=== PATIENT | female | born 2005 | race Two or more races ===

== ENCOUNTER 2025-07-27 21:05 | Emergency (ER) | payer OTHER, SELFPAY ==
[2025-07-27 21:07] VITALS: BMI 25.8
--- NOTE | 2025-07-27 22:40 | PD.EDWOUND ---
ED Wound/Laceration-RME/HPI General Chief Complaint: Wound/Laceration Stated Complaint: LAC TO L FOREARM Time Seen by Provider: 07/27/25 22:25 Arrival date/time: 07/27/25 21:05 RME / HPI RME / HPI narrative: 20-year-old female patient came in for evaluation regarding left forearm laceration. Incident happened few minutes prior to ER visit while working in [employer] accidentally cut her forearm with a juke box mechanic resulting into a 2 cm gaping laceration with minimal bleeding. Denies any other injury. Tetanus vaccination is up-to-date. Related Data Allergies Allergy/AdvReac Type Severity Reaction Status Date / Time No Known Allergies Allergy Verified 07/27/25 21:09 Review of Systems Review of Systems Narrative Review of Systems: Review of system reviewed and within normal limits except mentioned in HPI ED Exam Narrative Physical exam: VITAL SIGNS: Reviewed. GENERAL APPEARANCE: Alert and interactive, follows commands, no acute distress, HEAD AND FACE: Non-traumatic. ENT: PERRL, pink conjunctivitis, eyelid no trauma, Mucous membrane moist. NECK: Supple, nontender, no nuchal rigidity. RECTAL: Deferred. GENITAL: Deferred. NEUROLOGICAL: Gross motor function intact sensory function intact, Appropriate for age. MUSCULOSKELETAL: low back nontender, full range of motion. EXTREMITIES: Nontender, full range of motion. SKIN: Color pink, dry, no rash, +2 cm gaping laceration left forearm volar aspect with minimal bleeding full range of motion of the wrist and fingers,, no abrasions, no contusions. LYMPHATICS: Deferred. Course Quality Measures none Vital Signs Vital signs: Vital Signs Temperature 98.2 F 07/27/25 22:50 Pulse Rate 78 07/27/25 22:50 Respiratory Rate 16 07/27/25 22:50 Blood Pressure 134/87 H 07/27/25 22:50 Pulse Oximetry (%) 100 07/27/25 22:50 Oxygen Delivery Method Room Air 07/27/25 22:50 PROCEDURES: Laceration Laceration 1: Site: upper extremity Side (If applicable): left Size (cm): 2 Description: linear Depth: simple, single layer Local Anesthetic: lidocaine 1% Amount of anesthesia used (mL): 2 Pre-repair: wound explored and irrigated extensively Skin layer closed with: nylon Suture size (cm): 5-0 Number of sutures: 5 Technique: simple, interrupted Wound / Laceration MDM Narrative MDM Narrative:: 20-year-old female patient came in for evaluation regarding left forearm laceration. Incident happened few minutes prior to ER visit while working in [employer] accidentally cut her forearm with a juke box mechanic resulting into a 2 cm gaping laceration with minimal bleeding. Denies any other injury. Tetanus vaccination is up-to-date. Suturing was done by me see procedure note. Tetanus vaccination is up-to-date. Patient tolerated the procedure well Stable for discharge home Patient data External records reviewed:: None Clinical information provided by:: patient Social determinants that could affect healthcare access:: none Patient has the following chronic illnesses:: None How is presenting disease/condition affected by chronic disease/condition?: exacerbated by Evaluation data The following diagnostics were reviewed and interpreted by me:: other (specify) Lab and/or radiology exams considered but not ordered:: None Interpretation Summary: None Medications / Prescriptions Medications or Prescriptions considered but not ordered:: None Medication administrations:: Motrin Consultations Consultation(s) initiated? (list below): No Diagnosis Wound Differential Diagnosis: laceration, abrasion and avulsion of skin Most likely diagnosis given after review of the tests above:: Left forearm laceration Admission Indicated Admission indicated?: not indicated Admission Request Was there a request for admission?: No Disposition Plan Disposition Plan: Discharge Discharge Attestation Discharge Attestation: The patient and all family members were given an opportunity to ask questions and understood the discharge instructions. Discharge instructions specifically effects, indications for sooner follow up or return to the emergency department, and the expected course of current diagnosis. Patient condition: Stable Discharge Plan Plan Patient Disposition: HOME (Self Care) Discharge Disposition comment: Stable Problem List Clinical Impression: Forearm laceration Patient/Caregiver Discharge Instructions Discharge Activity: activity as tolerated Education Materials: ED Laceration: All Closures Additional Instructions: Thank you for the opportunity for serving you today. You are stable for discharged . You are advised to: Follow-up with your PCP in 1 to 2 days Return to ED for worsening of symptoms Increase oral fluids You can take [id number] Tylenol Motrin as needed for pain For removal of sutures in 7 days Print Language: Bulgarian Stand Alone Forms: [facility]chita Award Info., Patient Portal Info Letter ELIZABETH/SARAH Supervising Physician ELIZABETH/SARAH Supervising Physician: MD Sharmaine
[2025-07-27 22:50] VITALS: BP 134/87; PULSE 78; RESP 16; TEMP 36.8; O2SAT 100
== END 2025-07-27 23:10 | disposition home or self-care (01) ==
LOC: SERX 23:05
PROVIDERS: Emergency Provider Emergency Medicine
DX: S51.812A Laceration without foreign body of left forearm, initial encounter (principal); W26.8XXA Contact with other sharp object(s), not elsewhere classified, initial encounter; Y92.511 Restaurant or cafe as the place of occurrence of the external cause; Y99.0 Civilian activity done for income or pay
CPT/HCPCS: 12001; 99281